=== PATIENT | male | born 1990 | race Caucasian/White ===

== ENCOUNTER 2018-11-27 12:08 | Emergency (ER) | payer OTHER ==
[2018-11-27 12:16] VITALS: TEMP 97.6
[2018-11-27] MEDS ORDERED: AZITHROMYCIN 250 MG TAB PO STA (13:00)
[2018-11-27] MEDS ORDERED: cefTRIAXone 250 MG VIAL IM STA (13:00)
--- NOTE | 2018-11-27 13:03 | ED ---
Male Urogenital HPI - General Chief complaint: Urogenital Stated complaint: STD Check Time Seen by Provider: 11/27/18 12:31 Source: patient, RN notes reviewed Mode of arrival: ambulatory Limitations: no limitations - History of Present Illness Initial comments: 27-year-old male presents emergency Department with chief complaint of penile discharge, dysuria. Patient states that he's concerned he has chlamydia. Patient's symptoms mother was tested positive for chlamydia. Patient is here for treatment and testing. Patient denies any lesions or sores. Patient has no history. - Related Data Allergies Allergy/AdvReac Type Severity Reaction Status Date / Time No Known Allergies Allergy Verified 11/27/18 12:16 Review of Systems ROS Statement: Those systems with pertinent positive or pertinent negative responses have been documented in the HPI. ROS Other: All systems not noted in ROS Statement are negative. Past Medical History Past Medical History: No Reported History History of Any Multi-Drug Resistant Organisms: None Reported Past Surgical History: No Surgical Hx Reported Past Psychological History: No Psychological Hx Reported Smoking Status: Current every day smoker Past Alcohol Use History: Daily Past Drug Use History: Marijuana General Exam Limitations: no limitations General appearance: alert, in no apparent distress Head exam: Present: atraumatic, normocephalic, normal inspection Eye exam: Present: normal appearance, PERRL, EOMI. Absent: scleral icterus, conjunctival injection, periorbital swelling ENT exam: Present: mucous membranes moist Respiratory exam: Present: normal lung sounds bilaterally. Absent: respiratory distress, wheezes, rales, rhonchi, stridor Cardiovascular Exam: Present: regular rate, normal rhythm, normal heart sounds. Absent: systolic murmur, diastolic murmur, rubs, gallop, clicks GI/Abdominal exam: Present: soft, normal bowel sounds. Absent: distended, tenderness, guarding, rebound, rigid Course Vital Signs 11/27/18 12:13 Temperature 97.6 F Pulse Rate 89 Respiratory 20 Rate Blood Pressure 140/76 O2 Sat by Pulse 99 Oximetry Medical Decision Making - Medical Decision Making 27-year-old presented for possible STD. Patient we treated for gonorrhea chlamydia. Urinalysis was sent. Patient will be notified if positive. Patient though is treated. Disposition Clinical Impression: Concern about STD in male without diagnosis, STD exposure, Dysuria Disposition: HOME SELF-CARE Condition: Stable Instructions (If sedation given, give patient instructions): Chlamydia (ED), Sexually Transmitted Diseases (ED) Additional Instructions: Please return to the Emergency Department if symptoms worsen or any other concerns. Is patient prescribed a controlled substance at d/c from ED?: No Referrals: None,Stated [Primary Care Provider] - 1-2 days Time of Disposition: 13:02
[2018-11-27 13:12] LABS: Appearance,Urine Cloudy (Clear); Bacteria,Urine Few /hpf; Bilirubin,Urine Negative (Negative); Blood,Urine Small (Negative); Color,Urine Yellow; Glucose,Urine (UA) Negative (Negative); Ketones,Urine 1+ (Negative); Leukocyte Esterase,Urine Large (Negative); Mucus,Urine Rare /hpf; Nitrite,Urine Negative (Negative); Protein,Urine Trace (Negative); RBC,Urine 6 /hpf (0-5); Specific Gravity,Urine 1.021 (1.001-1.035); Squamous Epithelial Cell,Urine <1 /hpf (0-4); Urobilinogen,Urine <2.0 mg/dL (<2.0)
[2018-11-27 13:39] VITALS: BP 135/78; PULSE 85; RESP 16
== END 2018-11-27 13:38 | disposition home or self-care (01) ==
LOC: EC 12:08
DX: Z20.2 Contact with and (suspected) exposure to infections with a predominantly sexual mode of transmission (principal); R30.0 Dysuria; F17.200 Nicotine dependence, unspecified, uncomplicated
CPT/HCPCS: 81001; 87491; 87591; 87086; 99283; 96372; J0696

== ENCOUNTER → 2020-07-08 | Outpatient (CLI) | payer MEDICARE, OTHER ==
--- NOTE | 2020-07-08 13:39 | XR ---
EXAMINATION TYPE: XR knee complete LT DATE OF EXAM: 07/08/2020 COMPARISON: None HISTORY: 29-year-old male M25.562, knee pain after fall 2 weeks ago. TECHNIQUE: 3 views FINDINGS: Small knee joint effusion. Extensor mechanism is intact. No acute fracture, subluxation, or dislocati on seen. IMPRESSION: No acute osseous abnormality seen. There is a small knee joint effusion which may be reactive to the patient's injury. If pain persists or concern for internal derangement, MRI can be performed.
== END | disposition home or self-care (01) ==
LOC: RADXRMAIN 12:29
PROVIDERS: ATTEND Nurse Practitioner Family
DX: M25.462 Effusion, left knee (principal)

== ENCOUNTER → 2020-08-23 | Outpatient (CLI) | payer OTHER ==
--- NOTE | 2020-08-24 01:23 | MR ---
EXAMINATION TYPE: MR knee LT wo con DATE OF EXAM: 08/23/2020 COMPARISON: None HISTORY: Left knee pain, S/P fall 6 mos ago Multiplanar multiecho imaging of the left knee was performed without contrast. The anterior and posterior cruciate ligaments are intact. The patella is intact. Medial and lateral m enisci show fairly normal signal pattern. There is no evidence of meniscal tear. The collateral ligam ents are intact. There is no evidence of any significant joint effusion. There is no evidence of a fr acture. I see no evidence of bony destructive process. IMPRESSION: Negative MR scan of the left knee. No fracture. No evidence of ligament or meniscal tear.
== END | disposition home or self-care (01) ==
LOC: RADMRIMAIN 21:15
PROVIDERS: ATTEND Orthopaedic Surgery
DX: M25.562 Pain in left knee (principal)